=== PATIENT | male | born 1970 | race Hispanic/Latino ===

== ENCOUNTER 2021-02-02 11:26 | Emergency (ER) | payer SELFPAY ==
[2021-02-02 11:26] VITALS: BP 125/86; PULSE 102; RESP 18; TEMP 36.9; O2SAT 99
--- NOTE | 2021-02-02 11:40 | ECG_ITS ---
Measurements Intervals [place] Rate: 101 P: 12 RI: 104 QRS: 16 QRSD: 94 T: 36 QT: 336 QTc: 436 Interpretive Statements SINUS TACHYCARDIA WITH SHORT RI INTERVAL NONSPECIFIC ST ELEVATION IN ANTERIOR LEADS BASELINE ARTIFACT- III, V1-V2 BORDERLINE ECG Electronically Signed On 02-02-2021 12:18:22 CDT by Fran Barger D.O.
[2021-02-02 12:42] LABS: Basophils Absolute Auto 0.1 K/mm3 (0.0-0.1); Basophils Percent Auto 0.7 % (0.2-1.2); Eosinophils Absolute Auto 0.2 K/mm3 (0-0.3); Eosinophils Percent Auto 1.4 % (0-4.4); Hematocrit 51.7 % (42.0-52.0); Hemoglobin 17.5 g/dL (14.0-18.0); Immature Granulocyte Percent A 0.8 % (0-0.5); Lymphocytes Absolute Auto 1.59 K/mm3 (0.9-3.2); Lymphocytes Percent Auto 12.2 % (18.3-44.2); Mean Corpuscular HGB Conc 33.8 g/dl (32-36); Mean Corpuscular Hemoglobin 29.6 pg (26-34); Mean Corpuscular Volume 87.5 fl (80-100); Mean Platelet Volume 9.1 fl (7.4-10.4); Monocytes Absolute Auto 1.3 K/mm3 (0.1-0.6); Monocytes Percent Auto 9.6 % (2.6-8.5); Neutrophils Absolute Auto 9.9 K/mm3 (1.3-6.7); Neutrophils Percent Auto 75.3 % (45.5-73.1); Platelet Count Result 284 k/mm3 (150-375); Red Blood Count 5.91 M/mm3 (4.6-6.20); Red Cell Distribution Width 15.4 % (11.5-14.5); White Blood Count 13.1 K/mm3 (4.5-10.0)
[2021-02-02 12:53] LABS: Anion Gap 11 mmol/L (8-16); Blood Urea Nitrogen 14 mg/dL (9-20); Carbon Dioxide 21 mmol/L (22-30); Chloride 102 mmol/L (98-107); Creatine Kinase 192 U/L (55-170); Estimated CRCL calculation 38 ml/min; Estimated Glomerular Filt Rate 46; Glucose 94 mg/dL (75-110); Potassium 3.7 mmol/L (3.4-5.0); Sodium 134 mmol/L (137-145)
--- NOTE | 2021-02-02 12:55 | ED.GENADULT ---
HPI - General Adult General Chief complaint: Unspecified Stated complaint: ABD CRAMPS,?HEAT EXHAUSTION Time Seen by Provider: 02/02/21 11:30 History of Present Illness HPI narrative: Patient is a 51-year-old male who presents ER with cramping of his extremities and abdomen. 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 Today he began having cramping his hands that moved up his body and caused him to have nausea. No chest pain or chest pressure. No fevers or chills. He has had similar symptoms when walking in the heat. Related Data Home Medications Medication Instructions Recorded Confirmed No Home Medications 02/02/21 02/02/21 Allergies Allergy/AdvReac Type Severity Reaction Status Date / Time No Known Allergies Allergy Verified 02/02/21 11:30 Review of Systems Review of Systems: All systems reviewed & are unremarkable except as noted in HPI and below Cardiovascular: Cardiovascular: Denies chest pain, Denies chest pain at rest and Denies palpitations Gastrointestinal: Gastrointestinal: Denies abdominal pain, Denies diarrhea and Reports nausea Musculoskeletal: Musculoskeletal: Denies back pain and Reports muscle cramps Neurologic: Denies Abnormal speech present, Denies numbness and Denies paresthesias PMF Past Medical History Medical History (Updated 02/02/21 @ 13:19 by Travon Stephens MD) Healthy adult male Surgical History Surgical History (Updated 02/02/21 @ 12:59 by Travon Stephens MD) No history of previous surgery Social History Social History (Updated 02/02/21 @ 12:59 by Travon Stephens MD) Smoking status: Current every day smoker Alcohol intake: current Substance use type: marijuana and crack/cocaine Exam Narrative: Exam Narrative: GENERAL: Well-appearing, well-nourished, and in no acute distress. HEAD: Normocephalic, atraumatic. CHEST: Clear to auscultation. No respiratory distress. HEART: Regular rate and rhythm. Normal peripheral pulses. ABDOMEN: Soft, nontender, nondistended. EXTREMITIES: Normal range of motion. No edema. SKIN: Warm, dry, no rash. NEURO: Alert and oriented x3. PSYCH: Normal mood and affect. Course Course Emergency Course: Feels well after fluid. Informed of results. Discharge home. Vital Signs Vital signs: Vital Signs Temperature 98.4 F 02/02/21 11:26 Pulse Rate 102 H 02/02/21 11:26 Respiratory Rate 18 02/02/21 11:26 Blood Pressure 125/86 02/02/21 11:26 Pulse Oximetry 99 02/02/21 11:26 Temperature 98.4 F 02/02/21 11:26 Pulse Rate 102 H 02/02/21 11:26 Respiratory Rate 18 02/02/21 11:26 Blood Pressure 125/86 02/02/21 11:26 Pulse Oximetry 99 02/02/21 11:26 Medical Decision Making Vital Signs Vital Signs: Vital Signs Temperature 98.4 F 02/02/21 11:26 Pulse Rate 102 H 02/02/21 11:26 Respiratory Rate 18 02/02/21 11:26 Blood Pressure 125/86 02/02/21 11:26 Pulse Oximetry 99 02/02/21 11:26 Temperature 98.4 F 02/02/21 11:26 Pulse Rate 102 H 02/02/21 11:26 Respiratory Rate 18 02/02/21 11:26 Blood Pressure 125/86 02/02/21 11:26 Pulse Oximetry 99 02/02/21 11:26 Lab Data Result diagrams: 02/02/21 12:36 02/02/21 12:36 Labs: Lab Results 02/02/21 02/02/21 Range/Units 12:36 12:36 WBC 13.1 H (4.5-10.0) K/mm3 RBC 5.91 (4.6-6.20) M/mm3 Hgb 17.5 (14.0-18.0) g/dL Hct 51.7 (42.0-52.0) % MCV 87.5 (80-100) fl MCH 29.6 (26-34) pg MCHC 33.8 (32-36) g/dl RDW 15.4 H (11.5-14.5) % Plt Count 284 (150-375) k/mm3 MPV 9.1 (7.4-10.4) fl Immature Gran % (Auto) 0.8 H (0-0.5) % Neut % (Auto) 75.3 H (45.5-73.1) % Lymph % (Auto) 12.2 L (18.3-44.2) % [place] % (Auto) 9.6 H (2.6-8.5) % Eos % (Auto) 1.4 (0-4.4) % Baso % (Auto) 0.7 (0.2-1.2) % Lymph # (Auto) 1.59 (0.9-3.2) K/mm3 [place] # (Auto) 1.3 H (0.1-0.6) K/mm3 Eos # (Auto) 0.2 (0-0.3) K/mm
[2021-02-02 13:34] VITALS: BP 122/78; PULSE 78; RESP 20; O2SAT 99
== END 2021-02-02 13:36 | disposition home or self-care (01) ==
PROVIDERS: Emergency Provider Emergency Medicine
DX: R10.9 Unspecified abdominal pain (principal); F17.200 Nicotine dependence, unspecified, uncomplicated; X32.XXXA Exposure to sunlight, initial encounter; X58.XXXA Exposure to other specified factors, initial encounter; Y92.71 Barn as the place of occurrence of the external cause
CPT/HCPCS: 36415; 80048; 82550; 85025; 93005; 99283